=== PATIENT | female | born 1970 | race Caucasian/White ===

== ENCOUNTER 2016-09-13 13:55 | Emergency (ER) | payer OTHER ==
--- NOTE | ~2016-09-13 | CT2 ---
[facility] A Service of [facility] & [facility] RADIOLOGY TEXT RESULTS PATIENT: VERONICA MALIK LOCATION: [facility] : 72 UNIT #: [id number] AGE: [address]: Davonte Mckeon MD SEX: F ORDER DR: [id number] [facility] [address] [place], [place] [address] [id number] E MR#: [id number] Acc #: [id number] NAME: VERONICA MALIK : 1970 SEX: F STUDY DATE/TIME: 09/13/2016 19:18 UNIT: [facility] ROOM: STUDY DESCRIPTION: CT Abd and Pelv W Cont Attending Physician: Troy Mckeon M.D. Ordering Physician: Troy Mckeon M.D. Primary Care Physician: Garcia Alcantara M.D. MEDICAL IMAGING REPORT This report is preliminary unless electronic signature is present EXAM CT abdomen and pelvis with contrast HISTORY 46-year-old female right upper quadrant pain, nausea, vomiting starting last night. Air in portal vein noted on recent gallbladder ultrasound. TECHNIQUE Axial images performed the abdomen and pelvis following IV and oral contrast. Multiplanar reconstructed images reviewed at a workstation. This CT exam was performed with one or more of the following radiation dose reduction techniques: automatic exposure control, adjustment of mA and/or kV according to patient size, and iterative reconstruction. FINDINGS ABDOMEN: Lung bases unremarkable. Liver and spleen unremarkable. The gallbladder is distended. No convincing evidence of portal venous gas. Pancreas, kidneys and adrenal glands unremarkable except for several small cortical lesions compatible with cysts. There is a moderate amount of retroperitoneal lymphadenopathy nonspecific. Correlate with patient's clinical history. Stomach is contracted. Small bowel and colon unremarkable. PELVIS: Bladder, uterus and adnexa appear normal. Advanced degenerative changes noted L5-S1. Small amount of gas noted along the disc margin at the 5-1 level. Patient is status post laminectomy L5. IMPRESSION 1. Mild gallbladder distension but no gallbladder wall thickening or pericholecystic fluid. 2. No convincing evidence of portal venous gas. 3. Moderate amount of mesenteric and retroperitoneal lymphadenopathy. [facility] A Service of [facility] & [facility] / [facility] RADIOLOGY TEXT RESULTS PATIENT: VERONICA MALIK LOCATION: [facility] : 72 UNIT #: [id number] AGE: [address]: Davonte Mckeon MD SEX: F ORDER DR: Differential would include both benign and malignant disease. Correlate with clinical history. The adenopathy does not appear significantly changed from the patient's study of 06/20/2016. Dictated by... Levi Taylor M.D. THIS IS AN ELECTRONICALLY VERIFIED REPORT Levi Taylor M.D. at 09/14/2016 10:06 AM Chrissy TD: 09/14/2016 09:18 JOB #: [id number] MEDICAL IMAGING REPORT Page 1 of 1 COPY
--- NOTE | ~2016-09-13 | EKG ---
PATIENT: VERONICA MALIK UNIT #: [id number] Ventricular Rate: 93 BPM Atrial Rate: 93 BPM P-R Interval: 144 ms QRS Duration: 86 ms Q-T Interval: 382 ms QTC Calculation(Bezet): 474 ms P [place]: 64 degrees Calculated R Webb: 35 degrees Calculated T Webb: 40 degrees Diagnosis Line: Normal sinus rhythm Diagnosis Line: Normal ECG Diagnosis Line: When compared with ECG of 26-JUL-2013 18:44, Diagnosis Line: No significant change was found Diagnosis Line: Confirmed by ALEX ROA MD ([id number]) on 09/14/2016 Diagnosis Line: 10:58:52 PM INTERPRETING MD: CRISPIN SAUNDERS
--- NOTE | ~2016-09-13 | US67 ---
[facility] A Service of [facility] & [facility] RADIOLOGY TEXT RESULTS PATIENT: VERONICA MALIK LOCATION: [facility] : 72 UNIT #: [id number] AGE: [address]: Davonte Mckeon MD SEX: F ORDER DR: [id number] [facility] [address] [place], [place] [address] [id number] E MR#: [id number] Acc #: [id number] NAME: VERONICA MALIK : 1970 SEX: F STUDY DATE/TIME: 09/13/2016 13:41 UNIT: [facility] ROOM: STUDY DESCRIPTION: US Gallbladder Attending Physician: Davonte Mckeon Ordering Physician: [id number] Hallie Sterling Primary Care Physician: Garcia Alcantara M.D. MEDICAL IMAGING REPORT This report is preliminary unless electronic signature is present EXAM Gallbladder ultrasound COMPARISON September 04, 2013. CT abdomen and pelvis June 20, 2016. INDICATIONS 46-year-old female with epigastric abdominal pain, nausea and emesis since 4 a.m. this morning. FINDINGS Pancreas is not well seen due to shadowing overlying bowel gas. Hepatic contour is smooth. Portal architecture is maintained. There is mild hepatomegaly with hepatic length of 16.4 cm. Main portal vein is patent. Hepatic veins and IVC appear patent at the level of the hepatic hilum. Right kidney is normal length and cortical thickness. There is no right hydronephrosis. No definite right renal lesion or shadowing calculus. Gallbladder is fluid distended but otherwise unremarkable. Common bile duct measures up to 8 mm, not appreciably changed from CT June 20, 2016, measuring approximately a centimeter. Multiple echogenic foci seen within the portal vein at the level of the hepatic hilum. These echogenic foci are mobile and are highly suspicious for portal venous gas. Emergent correlation with CT abdomen and pelvis is recommended as ongoing bowel ischemia cannot be excluded. IMPRESSION 1. There are echogenic foci which are mobile passing hepatopetal in the main portal vein, highly suspicious for portal venous gas. This raises question of concern for possible bowel ischemia. Urgent CT abdomen and pelvis is recommended for further evaluation. 2. Fluid distention of the gallbladder which is otherwise unremarkable. There is no pericholecystic fluid or gallbladder wall thickening. 3. Hepatomegaly with otherwise normal appearance of the liver. [facility] A Service of [facility] RADIOLOGY TEXT RESULTS PATIENT: VERONICA MALIK LOCATION: [facility] : 72 UNIT #: [id number] AGE: [address]: Davonte Mckeon MD SEX: F ORDER DR: 4. Technologist measures a separate structure adjacent to the thickened right kidney which is hypoechoic and possibly representing bowel or a lymph node or other structure. It is definitely separate from the kidney and measures up to approximately 2.2 cm in maximal dimension. This can be evaluated on CT. Dr. Mckeon was notified of the findings of portal venous gas at the time of this dictation as well recommendations for emergent CT abdomen and pelvis for further characterization to exclude the possibility of bowel ischemia. This notification was performed at 3:30 p.m. 1. Dictated by... Jefe Salinas M.D. THIS IS AN ELECTRONICALLY VERIFIED REPORT Jefe Salinas M.D. at 09/15/2016 10:39 AM Rock TD: 09/14/2016 07:01 JOB #: [id number] MEDICAL IMAGING REPORT Page 1 of 1 COPY
[2016-09-13 13:25] LABS: ARTERIAL BLOOD GAS PCO2 35.6 mmHg (35.0-45.0)
[2016-09-13 13:26] LABS: ARTERIAL BLD GAS O2 SATURATION 69.1 % (90.0-100.0); ARTERIAL BLOOD GAS CARBOXY HB 4.5 %sat (0.0-9.0); ARTERIAL BLOOD GAS MET HB 0.9 %sat (0.0-2.0); ARTERIAL BLOOD GAS PO2 33.1 mmHg (80.0-100); ARTERIAL DRAW? NO
[2016-09-13 13:54] LABS: BASOPHIL# 0.1 X10e3 (0-0.3); BASOPHIL% 0.5 % (0-2.5); EOSINOPHIL# 0.6 X10e3 (0-0.7); EOSINOPHIL% 2.8 % (0.0-7.0); HEMATOCRIT 44.8 % (35.0-45.0); HEMOGLOBIN 14.7 gm/dL (12.0-16.0); LYMPHOCYTE# 2.3 X10e3 (1.0-3.5); LYMPHOCYTE% 9.9 % (17.0-45.0); MEAN CELL VOLUME 83.9 FL (83-96); MEAN CORPUSCULAR HEMOGLOBIN 27.5 PG (28-34); MEAN CORPUSCULAR HGB CONC 32.8 g/dL (30-36); MONOCYTE# 1.2 X10e3 (0-1.0); MONOCYTE% 5.2 % (3.0-12.0); NEUTROPHIL% 81.6 % (40-75); PLATELET COUNT 345 X10e3 (140-420); RED BLOOD COUNT 5.33 X10e (3.90-5.30); RED CELL DISTRIBUTION WIDTH 15.9 % (11.0-15.5); WHITE BLOOD COUNT 23.3 X10e3 (4.0-10.5)
[~2016-09-13 13:55] MED LIST: ACETAMINOPHEN PO; ACID CONTROL150 M1 PO; ALBUTEROL17 GM INH; ALPRAZOLAM; AMITRYPTYLINE PO; ASPIRIN PO; ATENOLOL50 MG PO; ATIVAN; BACTRIM DS TABL1 TA2 PO; CIPRO PO; CLINDAMYCIN PO; DEMEROL; DEMEROL PO; FERRO-TIME325 MG PO; FLUVOXAMINE MA100 MG PO; GLUCOPHAGE500 M1 PO; GLYBURIDE PO; HUMALOG MIX 75/10 ML SUBQ; JANUVIA100 MG PO; JANUVIA50 MG DOB; LAMICTAL; LAMICTAL PO; LAMICTAL2 MG PO; LANTUS INSULIN; LANTUS100 U/ML; LEVAQUIN750 MG PO; LIPITOR20 MG DOB; LOMOTIL TABLET1 TAB; LORCET 10-6501 EACH PO; LORCET 10/650 T1 TAB PO; LORTAB 5/500 TA1 TA2 PO; LOTREL 5/20 MG1 CAP; METFORMIN PO; MICRONASE5 M2 PO; MOTRIN600 MG PO; NEURONTIN800 MG DOB; NEXIUM; NORVASC PO; NOVOLOG100 U/M1 SUBQ; OMEPRAZOLE40 M1 PO; OXYCODONE HCL5 MG PO; PANTOPRAZOLE SO40 MG PO; PHENERGAN; PRILOSEC; PROZAC; SYMBICORT INH; TRICOR PO; ULTRAM PO; ZOLOFT100 MG PO
[2016-09-13 13:58] LABS: POC - CKMB 3.3 ng/mL (0.0-7.9); POC - TROPONIN <0.05 ng/mL (<=0.05)
[2016-09-13 14:01] LABS: DIFF IND YES
[2016-09-13 14:19] LABS: URINE SOURCE CLEAN CATCH
[2016-09-13 14:22] LABS: PLATELET ESTIMATE NORMAL (NORMAL)
[2016-09-13 14:23] LABS: ANISOCYTOSIS SL
[2016-09-13 14:28] LABS: URINE APPEARANCE CLEAR; URINE BILIRUBIN NEG (NEG); URINE BLOOD NEG (NEG); URINE COLOR YELLOW; URINE GLUCOSE >1000 MG/DL (NEG); URINE KETONE NEG (NEG); URINE LEUKOCYTE ESTERASE NEG (NEG); URINE NITRATE NEG (NEG); URINE PH 5.5 (5-8); URINE PROTEIN 1+ (NEG); URINE SPECIFIC GRAVITY 1.036 (1.003-1.035); URINE UROBILINOGEN 0.2 MG/DL (NEG)
[2016-09-13 14:29] LABS: URBCS1 AUWI 0-2 /[HPF] (0-2); URINE BACTERIA AUWI NEG (NEGATIVE); URINE SQUAMOUS EPITHELIAL CELL NONE SEEN /[HPF]; UWBCS1 AUWI 0-2 (0-5)
[2016-09-13 14:37] LABS: CULTURE INDICATED? NO
[2016-09-13 14:38] LABS: INFLUENZA A NEG (NEG); INFLUENZA B NEG (NEG)
[2016-09-13 14:39] LABS: ALBUMIN SERUM 4.4 g/dL (3.5-5.0); BETA HYDROXYBUTYRATE 0.33 MMOL/L (0.02-0.27); BILIRUBIN, DIRECT 0.1 mg/dL (0.0-0.2); BILIRUBIN,INDIRECT 0.9 mg/dL (0.0-0.9); CALCIUM SERUM 10.1 mg/dL (8.4-10.2); CREATININE SERUM 0.5 mg/dL (0.6-1.4); GLOM FILT RATE Estimated 116.9 mL/min (>60); POTASSIUM 3.4 mmol/L (3.5-5.1); PROTEIN TOTAL SERUM 9.3 g/dL (6.0-8.3)
== END 2016-09-13 21:05 | disposition home or self-care (01) ==
LOC: CED 13:55
PROVIDERS: Emergency Medicine
DX: R10.11 Right upper quadrant pain (principal); R11.2 Nausea with vomiting, unspecified; E10.65 Type 1 diabetes mellitus with hyperglycemia; R19.7 Diarrhea, unspecified
CPT/HCPCS: 36415; 74177; 76705; 80048; 80076; 81003; 82010; 82553; 82803; 82947; 84484; 84703; 85025; 87804; 93005; 96361; 96374; 96375; 99284; J1170; J2405; J2550; Q9967

== ENCOUNTER 2016-12-29 10:50 | Emergency (ER) | payer OTHER ==
--- NOTE | ~2016-12-29 | CT2 ---
[facility] A Service of [facility] & [facility] RADIOLOGY TEXT RESULTS PATIENT: VERONICA MALIK LOCATION: [facility] : 72 UNIT #: [id number] AGE: [address]: Bryn Valencia MD SEX: F ORDER DR: [id number] [address] [address] [id number] E MR#: [id number] Acc #: [id number] NAME: VERONICA MALIK : 1970 SEX: F STUDY DATE/TIME: 12/29/2016 13:13 UNIT: [facility] ROOM: STUDY DESCRIPTION: CT Abd and Pelv W Cont Attending Physician: Bryn Valencia M.D. Ordering Physician: Bryn Valencia M.D. Primary Care Physician: Garcia Alcantara M.D. MEDICAL IMAGING REPORT This report is preliminary unless electronic signature is present. EXAM Abdomen and pelvis CT with contrast HISTORY Abdominal pain of a burning nature with nausea and vomiting for the past several days. Pain is in the lower and mid abdomen. TECHNIQUE Axial images were obtained with intravenous contrast. 100 mL of Isovue was used. Comparison scan from 09/13/2016. This CT exam was performed with one or more of the following radiation dose reduction techniques: automatic control, adjustment of mA and/or kV according to patient size, and iterative reconstruction. FINDINGS No significant upper abdominal solid organ abnormalities are seen. Small bilateral renal cysts are noted once again. There is no evidence of pancreatitis. Several normal-sized lymph nodes are seen at the [place] hepatis unchanged from the previous examination. There are a few prominent lymph nodes in the retroperitoneum to the left of the aorta near the renal artery and vein that are unchanged. No new or enlarging retroperitoneal masses are noted. No distended bowel loops seen. No evidence of free fluid. The appendix is normal. In the pelvis there is no evidence of adenopathy, mass or fluid collection. Advanced degenerative disc disease is seen at L5-S1. IMPRESSION Nonspecific mildly prominent lymph nodes are seen in the [place] hepatis and retroperitoneum not significantly changed from the previous exam. No new or enlarging nodes are seen. No acute or inflammatory changes are seen in the abdomen or pelvis. [facility] A Service of [facility] & [facility] RADIOLOGY TEXT RESULTS PATIENT: VERONICA MALIK LOCATION: [facility] : 72 UNIT #: [id number] AGE: [address]: Bryn Valencia MD SEX: F ORDER DR: Dictated by... Chaim Gipson M.D. THIS IS AN ELECTRONICALLY VERIFIED REPORT Chaim Gipson M.D. at 12/30/2016 9:36 AM SHIRA/dahiana TD: 12/29/2016 18:24 JOB #: [id number] MEDICAL IMAGING REPORT Page 1 of 1
--- NOTE | ~2016-12-29 | EKG ---
PATIENT: VERONICA MALIK UNIT #: [id number] Ventricular Rate: 129 BPM Atrial Rate: 129 BPM P-R Interval: 126 ms QRS Duration: 84 ms Q-T Interval: 326 ms QTC Calculation(Bezet): 477 ms P [place]: 76 degrees Calculated R [place]: 64 degrees Calculated T [place]: 46 degrees Diagnosis Line: Sinus tachycardia Diagnosis Line: Right atrial enlargement Diagnosis Line: Nonspecific ST and T wave abnormality Diagnosis Line: Abnormal ECG Diagnosis Line: When compared with ECG of 13-SEP-2016 13:03, Diagnosis Line: ST now depressed in Anterior leads Diagnosis Line: Inverted T waves have replaced nonspecific T wave Diagnosis Line: abnormality in Inferior leads Diagnosis Line: Confirmed by JENAE TEMPLE MD ([id number]) on Diagnosis Line: 01/01/2017 9:01:23 AM INTERPRETING MD: WINDY SAUNDERS
[2016-12-29] MEDS ORDERED: METFORMIN (10:56)
[2016-12-29] MEDS ORDERED: LAMICTAL (10:56)
[2016-12-29] MEDS ORDERED: ATENOLOL (10:56)
[2016-12-29] MEDS ORDERED: LEVEMIR100 UNITS/ (10:56)
[2016-12-29] MEDS ORDERED: HUMALOG100 UNIT/2 (10:56)
[2016-12-29] MEDS ORDERED: ZOLOFT (10:56)
[2016-12-29] MEDS ORDERED: PRILOSEC (10:56)
[2016-12-29] MEDS ORDERED: ZOFRAN (10:56)
[2016-12-29 11:32] LABS: BASOPHIL% 0.4 % (0-2.5); EOSINOPHIL# 0.1 X10e3 (0-0.7); EOSINOPHIL% 1.6 % (0.0-7.0); HEMATOCRIT 44.2 % (35.0-45.0); HEMOGLOBIN 14.6 gm/dL (12.0-16.0); LYMPHOCYTE# 1.3 X10e3 (1.0-3.5); LYMPHOCYTE% 14.5 % (17.0-45.0); MEAN CELL VOLUME 83.6 FL (83-96); MEAN CORPUSCULAR HEMOGLOBIN 27.6 PG (28-34); MEAN PLATELET VOLUME 7.1 FL (6.5-11.5); MONOCYTE# 0.8 X10e3 (0-1.0); MONOCYTE% 8.7 % (3.0-12.0); NEUTROPHIL# 6.6 X10e3 (1.5-7.1); NEUTROPHIL% 74.8 % (40-75); PLATELET COUNT 327 X10e3 (140-420); RED BLOOD COUNT 5.29 X10e (3.90-5.30); RED CELL DISTRIBUTION WIDTH 16.6 % (11.0-15.5); WHITE BLOOD COUNT 8.8 X10e3 (4.0-10.5)
[2016-12-29 11:33] LABS: DIFF IND NO
[2016-12-29 11:47] LABS: POC - TROPONIN <0.05 ng/mL (<=0.05)
[2016-12-29 12:01] LABS: ALBUMIN SERUM 3.7 g/dL (3.5-5.0); BILIRUBIN, DIRECT 0.2 mg/dL (0.0-0.2); BILIRUBIN,INDIRECT 0.8 mg/dL (0.0-0.9); BUN/CREATININE RATIO 23.75; CALCIUM SERUM 8.5 mg/dL (8.4-10.2); CREATININE SERUM 0.8 mg/dL (0.6-1.4); GLOM FILT RATE Estimated 89.1 mL/min (>60); PROTEIN TOTAL SERUM 7.5 g/dL (6.0-8.3)
[2016-12-29 12:03] LABS: POTASSIUM 2.8 mmol/L (3.5-5.1)
[2016-12-29 12:28] LABS: URINE SOURCE CLEAN CATCH
[2016-12-29 12:32] LABS: URINE APPEARANCE HAZY; URINE BILIRUBIN NEG (NEG); URINE BLOOD 2+ (NEG); URINE COLOR YELLOW; URINE GLUCOSE 300 MG/DL (NORM); URINE KETONE NEG (NEG); URINE LEUKOCYTE ESTERASE NEG (NEG); URINE NITRATE NEG (NEG); URINE PROTEIN 1+ (NEG); URINE SPECIFIC GRAVITY <=1.005 (1.003-1.035); URINE UROBILINOGEN 0.2 MG/DL (NORM)
[2016-12-29 12:33] LABS: MICRO INDICATED? YES
[2016-12-29 12:41] LABS: CULTURE INDICATED? YES; URINE AMORPHOUS SEDIMENT AMORP URATES; URINE BACTERIA 1+ (NEG); URINE SQUAMOUS EPITHELIAL CELL MANY /[HPF]; URINE TRANSITIONAL EPI CELLS OCCAS /[HPF]; URINE YEAST PRESENT
[2016-12-29 15:47] LABS: AMPHETAMINE POS (NEG); BARBITURATES NEG (NEG); COCAINE NEG (NEG)
[2016-12-29 15:48] LABS: BENZODIAZEPINES NEG (NEG); MARIJUANA POS (NEG); OPIATES NEG (NEG); TRICYCLIC ANTIDEPRESSANTS NEG (NEG); U METHADONE NEG (NEG)
== END 2016-12-29 18:58 ==
LOC: SED 10:50
PROVIDERS: Emergency Medicine
DX: E11.65 Type 2 diabetes mellitus with hyperglycemia (principal); R11.2 Nausea with vomiting, unspecified; R10.9 Unspecified abdominal pain; E87.1 Hypo-osmolality and hyponatremia; E87.6 Hypokalemia; K21.9 Gastro-esophageal reflux disease without esophagitis; F31.9 Bipolar disorder, unspecified; F17.200 Nicotine dependence, unspecified, uncomplicated; Z86.19 Personal history of other infectious and parasitic diseases; Z79.4 Long term (current) use of insulin
CPT/HCPCS: 36415; 74177; 80048; 80076; 80307; 81003; 82010; 82553; 82947; 83605; 83690; 84484; 84703; 85025; 87086; 93005; 96372; 96374; 96375; 99285; C9113; J1200; J2405; J2765; Q9967